=== PATIENT | male | born 1965 | race Caucasian/White ===

== ENCOUNTER 2024-04-30 16:44 | Inpatient (IN) | payer BC, SELFPAY ==
[2024-04-30] VITALS (20 sets, daily range): BP systolic 119–158; BP diastolic 73–108; BMI 27.3
--- NOTE | 2024-04-30 09:34 | W.PN.CARDCBS ---
Today's Communication / Plan
-
[facility] LAD today
Impression / Plan
-
This is a summary, see scanned H&P
PCP: Tyrone Marte MD
CDY: Kei Jones MD
Patient is a 59-year-old male with a 2 to 3-month history of exertional chest discomfort. He describes a abrupt a burning sensation with exertion that occurs with physical activity. He noted over the last week or 2 that his gotten worse in
intensity with less exertion causing his symptoms. He denies any associated shortness of breath or radiation of his discomfort. He was in the ED and sent home with follow-up with who ordered a nuclear stress test results below. The
patient is scheduled for a cardiac catheterization as an outpatient on Monday. He however presents to [facility] 04/26/24 with severe chest discomfort lasting about 5 minutes that occurred when he was trying to move a washing machine. He denied radiation
or shortness of breath. He noted after about 5 minutes and subsided. He is underwent cardiac cath on Monday with severe calcified LAD lesion and is being transferred today for possible arthrectomy/PCI.
Impression:
NSTEMI troponin peak 66
Hypertension
Allergy to ciprofloxacin
Status postcholecystectomy
Father heavy smoker [place] at 70
Mother with diabetes
Plan:
Admit IVU post PCI
Troponin peaked at 66 and trended down
DAPT ASA/Plavix (loaded in prosthetic lab technician 600mg yesterday)
No BB d/t bradycardia, continue losartan
LDL 147, new start to rosuvastatin 20mg daily
Cardiac rehab c/s
f/u Dr. Jones 2-4 weeks
DATA:
nuclear stress test 04/24/2024 summary:
1. High risk myocardial perfusion imaging study.
2. Perfusion study: abnormal.
3. Left ventricular dilation at stress was found to be abnormal suggestive of multi-vessel ischemia. The stress to rest LV volume ratio is 1.16.
4. The left ventricular cavity size is mildly dilated. The left ventricular global function was mildly reduced. LVEF was 46 %.
5. Abnormal nuclear stress test suggestive of multivessel ischemia.
6. Pharmacological stress test: abnormal.
1. Myocardial perfusion imaging demonstrates a moderate size, severe intensity, reversible infero-septal defect, suggestive of ischemia. In addition, TID index is 1.16 suggesting that the ischemic burden may be large.
2. Gated SPECT imaging demonstrates mildly reduced LV systolic function with EF 46%.
04/29/2024:
Left heart catheterization:
Left Main: Normal artery, minor luminal regularities present.
Left Anterior Descending: Large vessel. Reaches the apex. Proximal LAD has 95% stenosis mildly calcified. Large diagonal branches coming off the area stenosis but the park is 1,0,1 configuration. Mid and distal LAD are free of disease.
Left Circumflex: Normal artery, minor luminal regularities present.
Right Coronary: Large vessel. Dominant, minor luminal regularities present.
04/18/24 ECHO: LVEF 60%, no WMA, mild TR
Progress Note - Hammer Smith
Subjective
Date of Service: April 30, 2024
no cp, sob
Objective
Vital Signs and I&O:
Vital Signs
Temp Pulse Resp BP Pulse Ox
98.6 F 64 22 139/84 99
04/30/24 08:45 04/30/24 09:18 04/30/24 09:18 04/30/24 09:18 04/30/24 09:18
Vital Signs
Temp Pulse Resp BP Pulse Ox
98.6 F 64 22 139/84 99
04/30/24 08:45 04/30/24 09:18 04/30/24 09:18 04/30/24 09:18 04/30/24 09:18
Physical Exam
Physical Exam
NAD< AOX3
S1, S2, RRR
CTAB, non labored, no wheeze
SNTND Bsx4
No LE edema
[2024-04-30 10:27] LABS: ACT-LR - POC 358 Seconds (116-155)
[2024-04-30 10:49] LABS: ACT-LR - POC 385 Seconds (116-155)
[2024-04-30] MEDS: NSS 1000 IV (11:33)
--- NOTE | 2024-04-30 11:33 | ITS.CL.ANGIO ---
Test Data Developer - Angioplasty
Angioplasty
Procedure Report:
LEFT HEART CATHETERIZATION
Date of Procedure: [04/30/2024]
Procedures performed:
1: Coronary angiography
2: PCI with AGATA to the LAD
Primary Care Physician: Unknown
Primary Oracle Applications Developer: Self
INDICATION: 59-year-old male with a history of abnormal nuclear stress test presented to the hospital past Syd with chest discomfort and slight troponin elevation. Diagnostic cardiac catheterization was done at [facility] showing severe
LAD disease. Patient was transferred to [facility] [place] for elective PCI.
ACCESS: The patient was prepped and draped in usual sterile fashion. A [6] Irish sheath was placed in the right [radial] artery using the Seldinger over the wire technique. 10,000 units of heparin was given for anticoagulation
HEMODYNAMIC FINDINGS (mmHg):
Ao(s/d,m): 113/80/95
ANGIOGRAPHIC FINDINGS:
Percutaneous Coronary Intervention (PCI): This was an elective percutaneous coronary intervention to the LAD. Using an EBU 3.5 mm guiding catheter, left main coronary artery was cannulated. Once again we demonstrated 90% ulcerated lesion in the
proximal and mid LAD. The lesion was crossed with a run-through wire. We first dilated the lesion with a 2.0 x 15 mm balloon. We then successfully deployed a 3.5 x 30 mm Leon drug-eluting stent. Intracoronary nitroglycerin was also administered.
The distal edge did not look smooth, and an edge dissection was suspected. Therefore, I decided to deploy a second, 3.0 x 12 mm Sony drug-eluting stent. The stents were then postdilated using a 3.5 mm x 20 noncompliant balloon. Highest inflation
pressure was 20 odalys. Post balloon inflation, there is no dissection or perforation with SUSAN-3 flow in the vessel.
FINAL RESULT: Successful PCI with AGATA x 2 to the LAD.
Fluoroscopy Time (min): 8.2 minutes
Radiation Dose (mGy): 449.12 mGy
DAP (Gy.cm2): [22.73]
Closure device: None. A TR band was applied for hemostasis at the right wrist.
Complications: None.
ASSESSMENT:
1: Severe LAD disease.
2: Successful PCI with AGATA x 2 to the left anterior descending artery.
CONCLUSIONS and RECOMMENDATIONS:
1: Continue maximal medical therapy.
2: Cardiac rehab referral.
3: Aspirin 81 mg daily for lifetime, Plavix 75 mg daily for at least 12 months.
I was present with the patient for the duration of the moderate sedation and supervised staff who monitored the patient for the entire procedure. Details of sedation are entered by the nurse administering the sedation and details of the patient's
monitoring status are entered by a sign monitor role staff member into the [facility] electronic record system. Please see the nursing flow sheets for documentation of the name of the independent trained observer, and intra-service start and
end times.
I administered moderate sedation throughout this [34] minute procedure. An independent trained observer administered medications at my direction, and monitored, along with the monitor role staff member, the patient's level of consciousness and
physiological status throughout
--- NOTE | 2024-04-30 14:27 | W.PN.UPDATE ---
Update Note
Progress Note Update
59 yo WM s/p PCI LAD x 2 AGATA (same day). He denies cp, sob, ji diet, voiding, amb w/o dizziness, EKG SR occ PVC's, R rad site c/d/i. He will be on DAPT ASA/Plavix. He will be new start to metoprolol and rosuvastatin. Cardiac rehab c/s. He will f/u
Dr. Jones in 2-4 weeks. He is for d/c home after 345p if rad site stable.
== END 2024-04-30 16:45 | disposition home or self-care (01) | DRG 322 ==
LOC: CATH-IN 16:44
PROVIDERS: Internal Medicine Cardiovascular Disease; ADMITTING PHYSICIAN Internal Medicine Interventional Cardiology; FAMILY PHYSICIAN Family Medicine
PROC: 027035Z Dilation of Coronary Artery, One Artery with Two Drug-eluting Intraluminal Devices, Percutaneous Approach (ICD-10-PCS; 2024-04-30)
DX: I21.4 Non-ST elevation (NSTEMI) myocardial infarction (principal); I10 Essential (primary) hypertension; I25.10 Atherosclerotic heart disease of native coronary artery without angina pectoris; Z88.1 Allergy status to other antibiotic agents; Z82.49 Family history of ischemic heart disease and other diseases of the circulatory system
CPT/HCPCS: 93005; C1725; C1874; C1894; C9600; Q9967